=== PATIENT | male | born 1980 | race Caucasian/White ===

== ENCOUNTER 2023-04-29 16:27 | Outpatient (CLI) | payer OTHER, SELFPAY ==
[2023-04-29 23:11] LABS: Chlamydia DNA Amplified* NOT DETECTED (No Detected); GC DNA Amplified* NOT DETECTED (No Detected)
== END 2023-04-29 16:28 | disposition home or self-care (01) ==
LOC: LKVREF 16:27
PROVIDERS: Visit Provider Physician Assistant
DX: Z11.3 Encounter for screening for infections with a predominantly sexual mode of transmission (principal); Z87.898 Personal history of other specified conditions
CPT/HCPCS: 87491; 87591